=== PATIENT | female | born 1960 | race Caucasian/White ===

== ENCOUNTER 2018-02-07 15:49 | Emergency (ER) | payer OTHER ==
[~2018-02-07] VITALS: Ht 167.6 cm; Wt 77.9 kg
[~2018-02-07 15:49] MED LIST: ALENDRONATE SOD70 MG PO; ASPIRIN81 M2 PO; LISINOPRIL5 MG PO; NAPROSYN500 MG PO; NORCO 5/3251 TABLET PO
[2018-02-07] MEDS ORDERED: MOTRIN600 MG PO (16:57)
[2018-02-07] MEDS ORDERED: AUGMENTIN500 MG PO (16:58)
[2018-02-07 17:44] VITALS: BP 164/64
== END 2018-02-07 17:48 | disposition home or self-care (01) ==
LOC: EME 15:49
PROC: 3E0234Z Introduction of Serum, Toxoid and Vaccine into Muscle, Percutaneous Approach (ICD-10-PCS; principal; 2018-02-07)
DX: S71.152A Open bite, left thigh, initial encounter (principal); W54.0XXA Bitten by dog, initial encounter; Y99.0 Civilian activity done for income or pay; Z23 Encounter for immunization
CPT/HCPCS: 99281; 99283